=== PATIENT | female | born 1995 ===

== ENCOUNTER 2017-03-24 09:57 | Emergency (ER) | payer BC ==
[2017-03-24 11:03] VITALS: BP 124/73
--- NOTE | 2017-03-24 11:48 | UC ---
Eye Complaint HPI - HPI Summary HPI Summary: 21 female presents with complaints of right eye redness, irritation and discharge that began upon waking this morning. 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 She believes it is pink eye. Denies foreign body, abrasion or anything getting into her eye. She does wear contacts but did not wear them today when symptoms began. Discharge was described as green/yellow and purulent with crusting. Denies visual loss or changes. No other complaints at this time. - History of Current Complaint Chief Complaint: UCEye Stated Complaint: RIGHT EYE COMPLAINT Time Seen by Provider: 03/24/17 11:09 Hx Obtained From: Patient Hx Last Menstrual Period: 03/04/17 ?: No Onset/Duration: Sudden Onset, Lasting Hours Timing: Constant Severity Initially: Mild Severity Currently: Mild Pain Intensity: 0 Pain Scale Used: 0-10 Numeric Location of Injury: Conjunctiva Aggravating Factor(s): Nothing Alleviating Factor(s): Nothing Associated Signs And Symptoms: Positive: Drainage (Purulent) - Allergies/Home Medications Allergies/Adverse Reactions: Allergies Allergy/AdvReac Type Severity Reaction Status Date / Time Amoxicillin Allergy Rash Verified 03/24/17 11:04 PMH/Surg Hx/FS Hx/Imm Hx - Additional Past Medical History Additional PMH: no current medications. medications reviewed and current. Endocrine History Of: Denies: Diabetes Cardiovascular History Of: Denies: Hypertension Psychological History Of: Denies: Anxiety - Surgical History Surgical History: None - Family History Known Family History: Positive: None - Social History Alcohol Use: Occasionally Substance Use Type: None Smoking Status (MU): Never Smoked Tobacco Review of Systems Constitutional: Negative Skin: Negative Eyes: Drainage, Eye Redness ENT: Negative Respiratory: Negative Cardiovascular: Negative Musculoskeletal: Negative Neurological: Negative All Other Systems Reviewed And Are Negative: Yes Physical Exam Triage Information Reviewed: Yes Appearance: Well-Appearing, No Pain Distress, Well-Nourished Vital Signs: Initial Vital Signs Temp 99 F 03/24/17 10:55 Pulse 71 03/24/17 10:55 Resp 18 03/24/17 10:55 BP 124/73 03/24/17 10:55 Vital Signs Reviewed: Yes Eyes: Positive: Conjunctiva Inflamed - right eye, Discharge - green/yellow, crusted on eyelashes, inflammed erythematous conjuncticva of right eye when compared to left, Other: - PERRLA, EOMI, no FB and fundoscopic exam, no swelling of periorbital area noted. ENT: Positive: Normal ENT inspection, Hearing grossly normal, Pharynx normal, TMs normal. Negative: Pharyngeal erythema, Nasal congestion, Nasal drainage Dental Exam: Normal Neck: Positive: Supple, Nontender, No Lymphadenopathy Respiratory: Positive: Chest non-tender, Lungs clear, Normal breath sounds, No respiratory distress, No accessory muscle use Cardiovascular: Positive: RRR, No Murmur, Pulses Normal Bowel Sounds: Positive: Present Musculoskeletal: Positive: Strength Intact, ROM Intact, No Edema Neurological Exam: Normal Psychological Exam: Normal Skin Exam: Normal Eye Complaint Course/Dx - Course Course Of Treatment: due to PE fingings, HPI and patient known contact with another conjunctivitis will be treated with Vigamox, due to contact lense wearer. Instructed not to wear contact lenses for the next week and to wear a new pair when infection has cleared. - Differential Dx/Diagnosis Differential Diagnosis/HQI/PQRI: Conjunctivitis, Foreign Body, Uveitis, Other Provider Diagnoses: conjunctivits, right eye Discharge - Discharge Plan Condition: Stable Disposition: HOME Prescriptions: Moxifloxacin 0.5% OPHTH(NF) [Vigamox 0.5% OPHTH(NF)] 1 drop RIGHT EYE Q3HR #1 [email or web address] Patient Education Materials: Conjunctivitis (ED) Referrals: Non Staff,Doctor [Primary Care Provider] - Additional Instructions: Use prescribed eye drops as directed for the next 7 days. Change all pillow cases and towels, wash with hot water to prevent re- infection. Do not touch eyes and wash hands frequently to prevent spreading infection. Do not wear contacts for the next 7 days and use new pair of contacts after infection as cleared. If symptoms persist, do not improve or worsen please seek medical attention and return. Follow up with PCP.
== END 2017-03-24 11:56 | disposition home or self-care (01) ==
LOC: UCCORT 09:57
DX: H10.31 Unspecified acute conjunctivitis, right eye (principal); Z88.1 Allergy status to other antibiotic agents
CPT/HCPCS: 99202; G0463